=== PATIENT | male | born 2005 | race Caucasian/White ===

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

== ENCOUNTER 2023-06-28 12:00 | Outpatient (RCR) | payer OTHER, SELFPAY ==
--- NOTE | 2023-03-14 18:07 | HP.PTEVAL ---
Patient's Visit Information Visit Information Visit Information: JORGE LUIS MCKOY is a 18 year old M referred to Physical Therapy by LONNIE CAMARILLO with a diagnosis of PATELLA INTABILITY OF RIGHT KNEE. Date of Evaluation: 03/14/23 Physical Therapist: Benjamín Obrien PT, Cert MDT, OCS Visit Plan Frequency: 2x /Week Duration: 12 WEEKS Plan: S/P RIGHT KNEE ARTHROSCOPIC WITH OPEN MPFL RECONSTRUCTION 02/20/23 PATIENT IS WBAT RLE WITH BRACE AND CRUTCHES OKAY TO ULOCK BUT WEAK QUAD AND EDEMA SEE PROTOCAL FOR MPFL RECONSTRUCTION FOR PROGRESSION PT INTERVERVENTIONS PER PROTOCAL ROM ,STRENGTHENING QUADS/HAMS/HIP ,CORE STRENGTHENING,PROGRESSION OF WB WITHOUT CRUTCHES ,BIKE,MMES AND VASO FOR EDEMA Subjective Subjective: This 18 y/o male presents physical therapy with patella instability of right knee. Patient underwent s/p right knee arthroscopic with open MPFL reconstruction 02/20/2023 at [facility] done Dr Nielsen. Patient was d/c DOS with crutches with min WB with brace locked in extension. Patient had a lot pain 1st week . Patient seen DR luque 2weeks but had a lot but had to drain knee due to the edema. Started PT in [place] 2 x. Patient has protocol see for progression. Patient continues to have edema and some pain. Medication stopped Oxycodone. Patient has paresthesia/tingling knee. Patient initially started dislocated patella 3 years ago football Senior Year . Subsequently dislocated knee 3 x playing basketball. Also did tried PT. Patient had MRI prior to surgery. Patient limitations with all functional activities walking ,standing /stairs. Patient sleeping good. Patient RTD ~ 2months. Patient condition affects QOL and function. Patient goals to Return to prior level of function. SOCIAL: Student [employer] Pain Right Knee: Pain Intensity (Out of 10): 5 Pain Intensity Range: 9 Objective Objective: POSTURE: knee flexed forward GAIT: Ambulates with crutches WBAT knee locked but Quad to weak to unlock NEURO: c/o paresthesia/tingling knee SKIN: incision well approximate sacbes JOINT LINE EDEMA:51.1 cm AROM: supine right knee flexion 20-85 degrees [place] MOBILITY: mod tight all planes QUAD CONTRACTION: Poor MMT: ( peak force ) quads/hams 0 CALF FLEXABLITY: mod tight Balance/Special Test Scores Lower Extremity Functional Score: 26 Goals Goal 1:: I with HEP for MPFL protocol progression Goal Time Frame: 4-6 Weeks Goal 2:: Patient to ambulate with normal gait pattern reciprocal Goal Time Frame: 8-12 Weeks Goal 3:: Patient to improve AROM supine knee AROM 0-125 degrees flexion to improve gait Goal Time Frame: 8-12 Weeks Goal 4:: Patient to improve peak force quads/hams 20-30# to improve function Goal Time Frame: 8-12 Weeks Goal 5:: Patient demonstrate 75% improvement with improve function and gait with returning to prior level of function Goal Time Frame: 8-12 Weeks Goal 6:: Patient to improve LFES score by 15-20 points to improve QOL and function Goal Time Frame: 8-12 Weeks Rehabilitation Potential Physical Therapy Diagnosis: This patient underwent s/p open MPFL reconstruction 02/20/23 with decrease ROM ,weakness ,poor quad contraction ,decrease gait with WBAT and Brace locked in extension and edema thus patient will benefit from skilled PT Rehabilitation Potential: Good Anticipated Interventions Patient/Client Instruction: Educate patient on: Condition and Plan of Care For the Purpose of:: To decrease pain, To increase ROM, To improve muscle performance and motor function, To increase tolerance to activity/condition/position, To improve ability of physical actions for home/community/work/leisure, To improve gait and locomotor functions, To improve health of tissue, To decrease soft tissue restriction, To increase flexibility/ROM, To improve balance and To reduce risk of recurrence Therapeutic Exercise to Include: Strength training, Endurance training, Balance training, Postural training, Flexibilty training, Gait and locomotor training, Passive ROM, Active ROM and Dynamic Lumbar Stabilization Comment: QUADS/HAMS/HIP SEE PROTOCAL MPFL For the Purpose of:: To decrease pain, To increase ROM, To improve muscle performance and motor function, To increase tolerance to activity/condition/position, To improve ability of physical actions for home/community/work/leisure, To improve health of tissue, To decrease soft tissue restriction, To increase flexibility/ROM, To improve endurance, To improve balance, To reduce risk of recurrence and To improve tolerance to ADL's Functional electric stimulation: Yes Cryotherapy (ice pack, ice massage): Yes Vasopneumatic device: Yes For the Purpose of:: To decrease pain, To decrease swelling/inflammation, To increase ROM, To improve health of tissue and To decrease soft tissue restriction Text: Thank you for the opportunity to evaluate your patient. For Medicare and Medicare HMO plans, please review the plan of care and approve it. It will need to be FAXED BACK to us at [phone] for Medicare purposes. For Medicare only, by signing this I certify the plan of care. Please let me know if there are questions or concerns regarding this plan of care. Physician Signature: Date:
--- NOTE | 2023-04-27 16:22 | HP.PTEVAL_ITS ---
Patient's Visit Information Visit Information Visit Information: JORGE LUIS MCKOY is a 18 year old M referred to Physical Therapy by LONNIE CAMARILLO with a diagnosis of PATELLA INTABILITY OF RIGHT KNEE *DOS 02/20*. Date of Evaluation: 03/14/23 Physical Therapist: Benjamín Obrien, PT, Cert MDT, OCS Visit Plan Frequency: 2x /Week Duration: 12 WEEKS Plan: S/P RIGHT KNEE ARTHROSCOPIC WITH OPEN MPFL RECONSTRUCTION 02/20/23 - SEE PROTOCAL... PT INTERVERVENTIONS PER PROTOCAL ROM, STRENGTHENING QUADS/HAMS/HIP/CORE, BIKE, MMES AND VASO FOR EDEMA Subjective Subjective: This 18 y/o male presents physical therapy with patella instability of right knee. Patient underwent s/p right knee arthroscopic with open MPFL reconstruction 02/20/[address] [facility] done Dr Nielsen. Patient was d/c DOS with crutches with min WB with brace locked in extension. Patient had a lot pain 1st week . Patient seen DR luque 2weeks but had a lot but had to drain knee due to the edema. Started PT in [place] 2 x. Patient has protocol see for progression. Patient continues to have edema and some pain. Medication stopped Oxycodone. Patient has paresthesia/tingling knee. Patient initially started dislocated patella 3 years ago football Senior Year . Subsequently dislocated knee 3 x playing basketball. Also did tried PT. Patient had MRI prior to surgery. Patient limitations with all functional activities walking ,standing /stairs. Patient sleeping good. Patient RTD ~ 2months. Patient condition affects QOL and function. Patient goals to Return to prior level of function. SOCIAL: Student [employer] Pain Right Knee: Pain Intensity (Out of 10): 1 Pain Intensity Range: 9 Objective Objective: POSTURE: knee flexed forward GAIT: Ambulates with crutches WBAT knee locked but Quad to weak to unlock NEURO: c/o paresthesia/tingling knee SKIN: incision well approximate sacbes JOINT LINE EDEMA:51.1 cm AROM: supine right knee flexion 20-85 degrees [place] MOBILITY: mod tight all planes QUAD CONTRACTION: Poor MMT: ( peak force ) quads/hams 0 CALF FLEXABLITY: mod tight Balance/Special Test Scores Lower Extremity Functional Score: 26 Goals Goal 1:: I with HEP for MPFL protocol progression Goal Time Frame: 4-6 Weeks Goal 2:: Patient to ambulate with normal gait pattern reciprocal Goal Time Frame: 8-12 Weeks Goal 3:: Patient to improve AROM supine knee AROM 0-125 degrees flexion to improve gait Goal Time Frame: 8-12 Weeks Goal 4:: Patient to improve peak force quads/hams 20-30# to improve function Goal Time Frame: 8-12 Weeks Goal 5:: Patient demonstrate 75% improvement with improve function and gait with returning to prior level of function Goal Time Frame: 8-12 Weeks Goal 6:: Patient to improve LFES score by 15-20 points to improve QOL and function Goal Time Frame: 8-12 Weeks Rehabilitation Potential Physical Therapy Diagnosis: This patient underwent s/p open MPFL reconstruction 02/20/23 with decrease ROM ,weakness ,poor quad contraction ,decrease gait with WBAT and Brace locked in extension and edema thus patient will benefit from skilled PT Rehabilitation Potential: Good Anticipated Interventions Patient/Client Instruction: Educate patient on: Condition and Plan of Care For the Purpose of:: To decrease pain, To increase ROM, To improve muscle performance and motor function, To increase tolerance to activity/condition/position, To improve ability of physical actions for home/community/work/leisure, To improve gait and locomotor functions, To improve health of tissue, To decrease soft tissue restriction, To increase flexibility/ROM, To improve balance and To reduce risk of recurrence Therapeutic Exercise to Include: Strength training, Endurance training, Balance training, Postural training, Flexibilty training, Gait and locomotor training, Passive ROM, Active ROM and Dynamic Lumbar Stabilization Comment: QUADS/HAMS/HIP SEE PROTOCAL MPFL For the Purpose of:: To decrease pain, To increase ROM, To improve muscle performance and motor function, To increase tolerance to activity/conditi on/position, To improve ability of physical actions for home/community/work/leisure, To improve health of tissue, To decrease soft tissue restriction, To increase flexibility/ROM, To improve endurance, To improve balance, To reduce risk of recurrence and To improve tolerance to ADL's Functional electric stimulation: Yes Cryotherapy (ice pack, ice massage): Yes Vasopneumatic device: Yes For the Purpose of:: To decrease pain, To decrease swelling/inflammation, To increase ROM, To improve health of tissue and To decrease soft tissue restriction Text: Thank you for the opportunity to evaluate your patient. For Medicare and Medicare HMO plans, please review the plan of care and approve it. It will need to be FAXED BACK to us at [phone] for Medicare purposes. For Medicare only, by signing this I certify the plan of care. Please let me know if there are questions or concerns regarding this plan of care. Physician Signature: Date:
--- NOTE | 2023-06-28 15:16 | HP.PTDCSUM ---
Discharge Summary D/C summary: It has been my pleasure to treat JORGE LUIS MCKOY referred by LONNIE CAMARILLO, with the diagnosis of PATELLA INTABILITY OF RIGHT KNEE *DOS 02/20* for a total of 20 visit(s). Discharge Date: 06/28/23 Please see the following information for a summary of their discharge status. Subjective Subjective: Doing well no problems Pain Right Knee: Pain Intensity (Out of 10): 0 Overall Improvement % Improvement: 85 Objective Objective/Function: GAIT: reciprocal pattern JOGGING: On treadmill~ 5mins Performing agility No problems AROM: 0-135 supine knee flexion MMT: ( peak force) quads 72.8 ,hamstrings 72.2 ,hip abd 52 ,1 LIFTING FROM: floor no proplmes good Goals Goal 1:: I with HEP for MPFL protocol progression Goal Progress: Goal Met Goal 2:: Patient to ambulate with normal gait pattern reciprocal Goal Progress: Goal Met Goal 3:: Patient to improve AROM supine knee AROM 0-125 degrees flexion to improve gait Goal Progress: Goal Met Goal 4:: Patient to improve peak force quads/hams 20-30# to improve function Goal Progress: Goal Met Goal 5:: Patient demonstrate 75% improvement with improve function and gait with returning to prior level of function Goal Progress: Goal Met Goal 6:: Patient to improve LFES score by 15-20 points to improve QOL and function Goal Progress: Goal Met Plan Plan: D/C D/C Information d/c sentence: If there are questions or concerns regarding this patient's physical therapy, please feel free to call me at [phone]. Thank you for the referral of this patient. Sincerely, Benjamín Obrien, PT, Cert MDT, OCS Balance/Gait/Functional tests Balance/Special Test Scores Lower Extremity Functional Score: 74 Improvement % Improvement: 85
== END 2023-06-28 17:50 | disposition home or self-care (01) ==
LOC: PT 12:00
PROVIDERS: Referring Provider Physician Assistant; Visit Provider Physician Assistant
DX: M25.361 Other instability, right knee (principal)
CPT/HCPCS: 97110; 97162; 97530